=== PATIENT | female | born 1970 | race Caucasian/White ===

== ENCOUNTER → 2021-12-28 | Day surgery (SDC) | payer OTHER ==
[~2021-12-28] MED LIST: BACLOFEN10 MG PO; GLUCAGON FOR INJ 1 MG VIAL ONE; HYOSCYAMINE SULFATE 0.5 MG/ML INJ ONE; LEVOTHYROXINE125 MCG PO; MIDAZOLAM HCL 2 MG/2 ML VIAL ONE; MOTRIN200 MG PO; NEURONTIN100 MG PO; POVIDONE IODINE 0.05% 0.05 % ML PO ONE; PROPOFOL IV EMULSION 10 MG/ML 20 ML VIAL ONE; TOPAMAX50 MG PO; TOPIRAMATE25 MG PO; VITAMIN D310 MCG PO; ZYRTEC10 M3 PO
[2021-12-28 14:40] VITALS: BP 107/72
== END | disposition home or self-care (01) ==
LOC: OR 12:05
PROVIDERS: ATTEND Internal Medicine Gastroenterology
DX: Z12.11 Encounter for screening for malignant neoplasm of colon (principal); K64.8 Other hemorrhoids; R14.0 Abdominal distension (gaseous); Z71.3 Dietary counseling and surveillance; E03.9 Hypothyroidism, unspecified; M19.90 Unspecified osteoarthritis, unspecified site; M06.9 Rheumatoid arthritis, unspecified; G43.909 Migraine, unspecified, not intractable, without status migrainosus; E78.5 Hyperlipidemia, unspecified; Z88.6 Allergy status to analgesic agent; Z01.810 Encounter for preprocedural cardiovascular examination; Z01.812 Encounter for preprocedural laboratory examination; Z20.822 Contact with and (suspected) exposure to COVID-19; Z79.899 Other long term (current) drug therapy; Z68.31 Body mass index [BMI] 31.0-31.9, adult
CPT/HCPCS: 45378; 93005; U0002; J1610; J1980; J2250